=== PATIENT | female | born 1970 | race Caucasian/White ===

== ENCOUNTER 2017-07-26 14:01 | Emergency (ER) | payer OTHER ==
[~2017-07-26] VITALS: Ht 162.6 cm; Wt 119.0 kg
[~2017-07-26 14:01] MED LIST: ESTR0.5T9 PO; META800 PO; OXYC15TA3 PO; PRIS50TA PO; SUMA100T2 PO; SYNT25TA PO; TERA1CAP8 PO
[2017-07-26 14:17] VITALS: BP 136/62; PULSE 108; RESP 16; TEMP 98.5
[2017-07-26] MEDS ORDERED: ROBA750T PO (15:56)
[2017-07-26] MEDS ORDERED: SIMV40TA PO (15:56)
[2017-07-26] MEDS ORDERED: LEVO.075 PO (15:56)
[2017-07-26] MEDS ORDERED: MS C15TA7 PO (15:56)
[2017-07-26] MEDS ORDERED: CYCL10TA PO (15:56)
[2017-07-26] MEDS ORDERED: ALPR.25 PO (15:56)
[2017-07-26] MEDS ORDERED: CELE40TA PO (15:56)
[2017-07-26] MEDS ORDERED: TERA2CAP3 PO (15:56)
[2017-07-26] MEDS ORDERED: IMIT100T PO (15:56)
--- NOTE | 2017-07-26 16:18 | PD ---
HPI Chief Complaint: Dizziness Time Seen by Provider: 16:02 Travel History International Travel<30 days: No Contact w/Intl Traveler<30days: No Traveled to known affect area: No History of Present Illness HPI The patient was seen and examined in the presence of the nurse. This patient complains of left knee pain. Duration 2 days. Severity is moderate. Worse with weightbearing. She has been having intermittent lightheadedness spells for couple of days as well. During 1 of these lightheaded spells she stumbled and fell and landed on her knees. She is only pain in the left knee. No fever. No vomiting or diarrhea or abdominal pain. No headache. No syncope. Spells are worse with activity. No alleviating factors. Patient takes Xanax and MS Contin chronically denies withdrawal or overdose PFSH Past Medical History Arthritis: Yes Blood Disorders: No Anxiety: Yes Depression: Yes Cancer: No Cardiovascular Problems: Yes (htn on meds) High Cholesterol: Yes Diminished Hearing: No Endocrine: Yes Fibromyalgia: Yes Gastrointestinal Disorders: Yes Genitourinary: No Hiatal Hernia: Yes Herniated Disk: Yes Hypertension: Yes Immune Disorder: Yes (fibromyalgia) Musculoskeletal: Yes Neurologic: No Psychiatric: Yes Reproductive: Yes Respiratory: Yes (recent pneumonia ear and sinus infection- 06/28) Migraines: Yes Thyroid Disease: Yes Tetanus Vaccination: > 5 Years Influenza Vaccination: No ?: Not : 2 Para: 1 : 1 Past Surgical History Abdominal Surgery: Yes (double hernia repair) Section: Yes (X 1) Gynecologic Surgery: Yes () Hysterectomy: Yes Other Surgery: Yes Social History Alcohol Use: No Tobacco Use: No Substance Use: No Allergies-Medications (Allergen,Severity, Reaction): Coded Allergies: meperidine (Unverified Allergy, Severe, SSRI INTERACTION, 07/26/17) tramadol (Unverified Allergy, Mild, SSRI INTERACTION, 07/26/17) Uncoded Allergies: TIAZADINE (Allergy, Severe, 07/26/17) . Reported Meds & Prescriptions Reported Meds & Active Scripts Active Reported Ms Contin (Morphine Sulfate) 15 Mg Tab 15 Mg PO Q8H Imitrex (Sumatriptan Succinate) 100 Mg Tab 100 Mg PO ONCE PRN If a satisfactory response has not been obtained at 2 hours, a second dose may be administered Flexeril (Cyclobenzaprine HCl) 10 Mg Tab 10 Mg PO TID PRN Robaxin (Methocarbamol) 750 Mg Tab 750 Mg PO TID Xanax (Alprazolam) 0.25 Mg Tab 0.25 Mg PO Q4H PRN Terazosin (Terazosin HCl) 2 Mg Cap 2 Mg PO HS Simvastatin 40 Mg Tab 40 Mg PO HS Synthroid (Levothyroxine Sodium) 75 Mcg Tab 75 Mcg PO DAILY Celexa (Citalopram Hydrobromide) 40 Mg Tab 40 Mg PO DAILY Review of Systems General / Constitutional: No: Fever Eyes: No: Visual changes HENT: Positive: Lightheadedness, No: Headaches Cardiovascular: No: Chest Pain or Discomfort Respiratory: No: Shortness of Breath Gastrointestinal: No: Abdominal Pain Genitourinary: No: Dysuria Musculoskeletal: Positive: Arthralgias, Limited ROM, Pain Skin: No Rash Neurologic: Positive: Dizziness, No: Weakness Psychiatric: No: Depression Endocrine: No: Polydipsia Hematologic/Lymphatic: No: Easy Bruising Physical Exam Narrative GENERAL: Well-nourished, well-developed patient in no apparent distress. SKIN: Focused skin assessment reveals no rash and nodules. Skin is Warm and dry. HEAD: Atraumatic. Normocephalic. EYES: Pupils equal and round. No scleral icterus. No injection or drainage. ENT: No nasal bleeding or discharge. Mucous membranes pink and moist. NECK: Trachea midline. No JVD. CARDIOVASCULAR: Regular rate and rhythm. No murmur appreciated. RESPIRATORY: No accessory muscle use. Clear to auscultation. Breath sounds equal bilaterally. GASTROINTESTINAL: Abdomen soft, non-tender, nondistended. Hepatic and splenic margins not palpable. MUSCULOSKELETAL: No obvious deformities. No clubbing. No cyanosis. No edema. there may be a small effusion of the left knee. Given her morbid obesity is hard to tell. There is no erythema or warmth. Decent range of motion. There is some medial joint line tenderness. NEUROLOGICAL: Awake and alert. No obvious cranial nerve deficits. Motor grossly within normal limits. Normal speech. PSYCHIATRIC: Appropriate mood and affect; insight and judgment normal. Data Data Last Documented VS Vital Signs Date Time Temp Pulse Resp B/P (MAP) Pulse Ox O2 Delivery O2 Flow Rate FiO2 07/26/17 16:34 78 20 119/68 (85) 94 Room Air 07/26/17 14:17 98.5 Orders Orders Iv Access Insert/Monitor (07/26/17 16:09) Stitch Separator / Telemetry [id number] (07/26/17 16:09) Complete Blood Count With Diff (07/26/17 16:09) Basic Metabolic Panel (Bmp) (07/26/17 16:09) Knee, Ltd (1 Or 2vws) (07/26/17 ) Crutches (07/26/17 18:22) ^ Knee Immobilizer (07/26/17 18:22) Labs Laboratory Tests Test 07/26/17 16:15 White Blood Count 7.3 TH/MM3 Red Blood Count 3.91 MIL/MM3 Hemoglobin 11.8 GM/DL Hematocrit 34.9 % Mean Corpuscular Volume 89.3 FL Mean Corpuscular Hemoglobin 30.1 PG Mean Corpuscular Hemoglobin Concent 33.8 % Red Cell Distribution Width 12.3 % Platelet Count 344 TH/MM3 Mean Platelet Volume 6.7 FL Neutrophils (%) (Auto) 58.4 % Lymphocytes (%) (Auto) 31.6 % Monocytes (%) (Auto) 5.7 % Eosinophils (%) (Auto) 3.8 % Basophils (%) (Auto) 0.5 % Neutrophils # (Auto) 4.3 TH/MM3 Lymphocytes # (Auto) 2.3 TH/MM3 Monocytes # (Auto) 0.4 TH/MM3 Eosinophils # (Auto) 0.3 TH/MM3 Basophils # (Auto) 0.0 TH/MM3 CBC Comment DIFF FINAL Differential Comment Blood Urea Nitrogen 9 MG/DL Creatinine 0.68 MG/DL Random Glucose 96 MG/DL Calcium Level 8.9 MG/DL Sodium Level 140 MEQ/L Potassium Level 3.9 MEQ/L Chloride Level 103 MEQ/L Carbon Dioxide Level 27.8 MEQ/L Anion Gap 9 MEQ/L Estimat Glomerular Filtration Rate 93 ML/MIN [facility] Medical Decision Making Medical Screen Exam Complete: Yes Emergency Medical Condition: Yes Medical Record Reviewed: Yes Differential Diagnosis Ligament tear, traumatic effusion, vasovagal episode, cardiac arrhythmia Narrative Course I have reviewed the patient's electronic medical record. Extended cardiac monitoring reveals sinus rhythm without ectopy I reviewed her left knee x-rays which show an effusion but no fracture or dislocation Labs sent CBC is normal Metabolic profile is normal Patient has a soft tissue injury of the left knee. We discussed options. I placed her in a immobilizer. We discussed crutches versus walker use. She wants to try crutches. She will call an orthopedist tomorrow for follow-up. Recommend ice and elevation and not to bear weight Diagnosis Primary Impression: Soft tissue injury of left knee Qualified Codes: S89.92XA - Unspecified injury of left lower leg, initial encounter Additional Impression: Lightheadedness Additional Instructions: Ice and elevate left knee. No weightbearing on left knee Use immobilizer You can try the crutches but use a walker if you are unsteady Follow-up with primary care and orthopedics Med/Other Pt SpecificInfo: Other Disposition: 01 DISCHARGE HOME Condition: Stable Jose Sevilla MD Jul 26, 2017 16:18
[2017-07-26 16:34] VITALS: BP 119/68; PULSE 78; RESP 20; O2SAT 94
[2017-07-26 16:36] LABS: AUTOMATED NEUTROPHIL # 4.3 TH/MM3 (1.8-7.7); BASOPHIL % 0.5 % (0.0-2.0); EOSINOPHIL # 0.3 TH/MM3 (0-0.4); EOSINOPHIL % 3.8 % (0.0-4.0); HEMATOCRIT 34.9 % (35.0-46.0); HEMOGLOBIN 11.8 GM/DL (11.6-15.3); LYMPH % 31.6 % (9.0-44.0); LYMPHOCYTE # 2.3 TH/MM3 (1.0-4.8); MEAN CELL VOLUME 89.3 FL (80.0-100.0); MEAN CORPUSCULAR HEMOGLOBIN 30.1 PG (27.0-34.0); MEAN CORPUSCULAR HGB CONC 33.8 % (32.0-36.0); MEAN PLATELET VOLUME 6.7 FL (7.0-11.0); MONO % 5.7 % (0.0-8.0); MONOCYTE # 0.4 TH/MM3 (0-0.9); NEUT % 58.4 % (16.0-70.0); PLATELET COUNT 344 TH/MM3 (150-450); RED BLOOD COUNT 3.91 MIL/MM3 (4.00-5.30); RED CELL DISTRIBUTION WIDTH 12.3 % (11.6-17.2); WHITE BLOOD COUNT 7.3 TH/MM3 (4.0-11.0)
[2017-07-26 16:48] LABS: CALCIUM 8.9 MG/DL (8.5-10.1)
[2017-07-26 16:49] LABS: BICARBONATE 27.8 MEQ/L (21.0-32.0)
[2017-07-26 16:52] LABS: CREATININE 0.68 MG/DL (0.50-1.00)
--- NOTE | 2017-07-26 17:01 | RADRPT ---
EXAM DATE/TIME: 07/26/2017 16:40 [facility] COMPARISON: No previous studies available for comparison. INDICATIONS : Left knee pain after a fall MEDICAL HISTORY : None. SURGICAL HISTORY : None. ENCOUNTER: Initial ACUITY: 2 days PAIN SCORE: 6/10 LOCATION: Left knee FINDINGS: There is mild medial compartment joint space narrowing and marginal osteophyte formation. No evidence of fracture or dislocation. There is a moderate suprapatellar effusion present. CONCLUSION: Mild degenerative change. Joint effusion without definite fracture. Balbir Loya MD on July 26, 2017 at 16:58 Board Certified Radiologist. This report was verified electronically.
[2017-07-26 19:27] VITALS: BP 150/81
== END 2017-07-26 19:49 | disposition home or self-care (01) ==
LOC: PHED 14:01
DX: S89.92XA Unspecified injury of left lower leg, initial encounter (principal); M25.462 Effusion, left knee; R42 Dizziness and giddiness; M19.90 Unspecified osteoarthritis, unspecified site; I10 Essential (primary) hypertension; M79.7 Fibromyalgia; E78.00 Pure hypercholesterolemia, unspecified; E07.9 Disorder of thyroid, unspecified; W01.0XXA Fall on same level from slipping, tripping and stumbling without subsequent striking against object, initial encounter
CPT/HCPCS: 73560; 80048; 85025; 99284; E0113